=== PATIENT | female | born 1970 | race Caucasian/White ===

== ENCOUNTER 2017-02-06 12:52 | Emergency (ER) | payer OTHER ==
[2017-02-06] MEDS ORDERED: DOXYCYCLINE HYCLATE 100 MG CAP/TAB PO ONE (13:11)
[2017-02-06 13:13] VITALS: BP 139/70; PULSE 65; RESP 14; TEMP 98.1; O2SAT 97
--- NOTE | 2017-02-06 13:15 | EDPHY ---
H & P Time Seen by Provider: 02/06/17 13:00 HPI/ROS: CHIEF COMPLAINT: Foot infection HISTORY OF PRESENT ILLNESS: Patient is a 46-year-old female who comes to the emergency department complaining of swollen red right foot. This began after she was working in the garden stung by something in between her 3rd and 4th toes. At first it was itchy and she took Benadryl with minimal improvement. The itching has subsided however and now it is swollen and red and warm. She has not had a fever. She does not have significant pain other than with swelling while walking. No nausea vomiting. REVIEW OF SYSTEMS: Constitutional: denies: chills, fever, recent illness, recent injury EENTM: denies: blurred vision, double vision, nose congestion Respiratory: denies: cough, shortness of breath Cardiac: denies: chest pain, irregular heart rate, lightheadedness, palpitations Gastrointestinal/Abdominal: denies: abdominal pain, diarrhea, nausea, vomiting, blood streaked stools Genitourinary: denies: dysuria, frequency, hematuria, pain Musculoskeletal: denies: joint pain, muscle pain Skin: See HPI Neurological: denies: headache, numbness, paresthesia, tingling, dizziness, weakness Hematologic/Lymphatic: denies: blood clots, easy bleeding, easy bruising Immunologic/allergic: denies: HIV/AIDS, transplant EXAM: GENERAL: Well-appearing, well-nourished and in no acute distress. HEAD: Atraumatic, normocephalic. EYES: Pupils equal round and reactive to light, extraocular movements intact, sclera anicteric, conjunctiva are normal. ENT: TMs normal, nares patent, oropharynx clear without exudates. Moist mucous membranes. NECK: Normal range of motion, supple without lymphadenopathy or JVD. LUNGS: Breath sounds clear to auscultation bilaterally and equal. No wheezes rales or rhonchi. HEART: Regular rate and rhythm without murmurs, rubs or gallops. ABDOMEN: Soft, nontender, normoactive bowel sounds. No guarding, no rebound. No masses appreciated. BACK: No CVA tenderness, no spinal tenderness, step-offs or deformities EXTREMITIES: Normal range of motion, no pitting or edema. No clubbing or cyanosis. NEUROLOGICAL: Cranial nerves II through XII grossly intact. Normal speech, normal gait. 5/5 strength, normal movement in all extremities, normal sensation PSYCH: Normal mood, normal affect. SKIN: The patient has cellulitis to the dorsum of her right foot with to 3 small vesicles. A small puncture or sting visible in between her 3rd and 4th toe seems to be the epicenter. It is warm to the touch. No purulence or drainage. Source: Patient Exam Limitations: No limitations - Medical/Surgical History Hx Asthma: No Hx Chronic Respiratory Disease: No Hx Diabetes: No Hx Cardiac Disease: No Hx Renal Disease: No Hx Cirrhosis: No Hx Alcoholism: No - Family History Significant Family History: No pertinent family hx - Social History Alcohol Use: Sober Drug Use: None Constitutional: Initial Vital Signs Temperature (C) 36.7 C 02/06/17 12:55 Heart Rate 65 02/06/17 12:55 Respiratory Rate 14 02/06/17 12:55 Blood Pressure 139/70 H 02/06/17 12:55 O2 Sat (%) 97 02/06/17 12:55 O2 Delivery Mode Room Air Allergies/Adverse Reactions: No Known Allergies Allergy (Unverified 02/06/17 13:11) Home Medications: Medication Instructions Recorded Doxycycline Hyclate [Vibramycin] 100 mg PO BID #30 cap 02/06/17 Medical Decision Making ED Course/Re-evaluation: I will treat the patient with doxycycline for cellulitis. I also encouraged antipyretics and pain medication. She will follow up with her regular physician. She understands agrees with this plan. Differential Diagnosis: Partial list of the Differential diagnosis considered include but were not limited to; cellulitis, allergic reaction and although unlikely based on the history and physical exam, I also considered abscess, osteomyelitis, diabetes. I discussed these differential diagnoses and the plan with the patient as well as the usual and expected course. The patient understands that the diagnosis is provisional and that in medicine we are not always correct and that further workup is often warranted. Usual and customary warnings were given. All of the patient's questions were answered. The patient was instructed to return to the emergency department should the symptoms at all worsen or return, otherwise to followup with the physician as we discussed. - Data Points Medications Given: Discontinued Medications Doxycycline Hyclate (Doxycycline Hyclate) 100 mg PO EDNOW ONE PRN Reason: Protocol Stop: 02/06/17 13:12 Last Admin: 02/06/17 13:35 Dose: 100 mg Departure - Departure Disposition: Home, Routine, Self-Care Clinical Impression: Cellulitis Qualifiers: Site of cellulitis: extremity Site of cellulitis of extremity: lower extremity Laterality: right Qualified Code(s): L03.115 - Cellulitis of right lower limb Condition: Fair Instructions: Doxycycline (By mouth), Cellulitis (ED) Referrals: HAYLIE TOMAS [Primary Care Provider] - As per Instructions Prescriptions: Doxycycline Hyclate [Vibramycin] 100 mg PO BID #30 cap
== END 2017-02-06 13:35 | disposition home or self-care (01) ==
LOC: CED 12:52
DX: L03.115 Cellulitis of right lower limb (principal)

== ENCOUNTER → 2017-04-29 | Outpatient (CLI) | payer OTHER | LOC: FIMAGING 07:48 | PROVIDERS: ATTEND Radiology Diagnostic Radiology | DX: I83.812 Varicose veins of left lower extremity with pain (principal) ==